=== PATIENT | female | born 1945 | race Asian ===

== ENCOUNTER 2017-10-20 21:24 | Emergency (ER) | payer MEDICARE ==
[~2017-10-20] VITALS: Ht 154.9 cm; Wt 56.7 kg
--- NOTE | 2017-10-20 21:29 | Emergency Room Report ---
History of Present Illness General Chief Complaint: Vomiting Source: Patient Present Illness HPI This is a 71-year-old female with no past medical history. She presents with chief complaint of abdominal pain with nausea vomiting and diarrhea for last 4 days. No fever or chills. Keep anything down. Denies any blood or bile with vomiting. Diarrhea is watery. Initially she said she was constipated she took some laxative. Now is is watery diarrhea. Crampy pain. No chest pain. Allergies: Coded Allergies: No Known Allergies (Unverified , 10/20/17) Patient History Past Medical History: see triage record, old chart reviewed Past Surgical History: none Pertinent Family History: none Social History: Denies: smoking Now: No Immunizations: other Reviewed Nursing Documentation: PMH: Agreed, PSxH: Agreed Review of Systems Eye: Denies: eye pain, blurred vision ENT: Denies: ear pain, nose congestion, throat swelling Respiratory: Denies: cough, shortness of breath Cardiovascular: Denies: chest pain, palpitations Gastrointestinal: Reports: abdominal pain, diarrhea, nausea, vomiting Musculoskeletal: Denies: back pain, joint pain Skin: Denies: rash Neurological: Denies: headache, numbness Endocrine: Denies: increased thirst, increased urine Hematologic/Lymphatic: Denies: easy bruising All Other Systems: negative except mentioned in HPI Physical Exam Vital Signs Date Time Temp Pulse Resp B/P (MAP) Pulse Ox O2 Delivery O2 Flow Rate FiO2 10/20/17 21:20 96.8 103 18 84/41 98 Room Air vitals with hypotension Sp02 EP Interpretation: reviewed, normal General Appearance: well appearing, no apparent distress, alert Head: normocephalic, atraumatic Eyes: bilateral eye PERRL, bilateral eye EOMI ENT: hearing grossly normal, normal pharynx Neck: full range of motion, supple, no meningismus Respiratory: chest non-tender, lungs clear, normal breath sounds Cardiovascular #1: regular rate, rhythm, no murmur Gastrointestinal: non tender, no mass, no organomegaly, no bruit, non-distended , decreased bowel sounds Musculoskeletal: back normal, gait/station normal, normal range of motion Psychiatric: mood/affect normal Skin: warm/dry Procedures Critical Care Time Critical Care Time Critical care is mandated in this patient who presented with acute renal failure and rapid A. fib. Patient require my urgent intervention to attenuate the risks of metabolic collapse which may lead to cardiovascular collapse and . Critical care time is 35 minutes excluding any reportable procedure. Critical care time included evaluation, multiple reevaluation, looking at old charts, interpreting laboratory and diagnostic data, discussing case with patient and family and consultants, and charting. Medical Decision Making Diagnostic Impression: Primary Impression: ARF (acute renal failure) Qualified Codes: N17.9 - Acute kidney failure, unspecified Additional Impressions: Rapid atrial fibrillation Dehydration Enteritis Sepsis Qualified Codes: A41.9 - Sepsis, unspecified organism ACS (acute coronary syndrome) ER Course Patient presents with severe dehydration and acute renal failure. Is probably secondary to vomiting and diarrhea. She does have enteritis on CT scan. Antibiotics given. She is urinating now. Blood pressures been stable after IV fluid. Heart rate became very tachycardic at 140s an EKG showed rapid A. fib. Rated control with small boluses of Cardizem. She is in sinus right now. Patient is stable for transfer to [place]. I discussed the case with Dr. Carmona. Last Vital Signs Date Time Temp Pulse Resp B/P (MAP) Pulse Ox O2 Delivery O2 Flow Rate FiO2 10/20/17 21:20 96.8 103 18 84/41 98 Room Air SACHI DOYLE M.D. Oct 20, 2017 21:29
[2017-10-20] MEDS ORDERED: LR 1000ml 1,000 ML IV SCH (21:30)
[2017-10-20] MEDS ORDERED: NKM (21:47)
[2017-10-20 23:49] LABS: MEAN CORPUSCULAR VOLUME 91 FL (80-99); MEAN PLATELET VOLUME 7.9 FL (6.5-10.1); PLATELET COUNT 165 K/UL (150-450); RED CELL DISTRIBUTION WIDTH 12.5 % (11.6-14.8); WHITE BLOOD COUNT 19.1 K/UL (4.8-10.8)
[2017-10-21 00:05] LABS: PROTHROMBIN TIME 10.8 SEC (9.30-11.50)
[2017-10-21 00:06] LABS: ANION GAP 16 mmol/L (5-15); CARBON DIOXIDE 18 MMOL/L (21-32); CHLORIDE 97 MMOL/L (98-107); CREATININE 4.6 MG/DL (0.55-1.30); POTASSIUM 5.3 MMOL/L (3.5-5.1); SODIUM 130 MMOL/L (136-145)
[2017-10-21 00:11] LABS: ALANINE AMINOTRANSFERASE 22 U/L (12-78); ALBUMIN/GLOBULIN RATIO 0.7 (1.0-2.7); ASPARTATE AMINO TRANSFERASE 32 U/L (15-37); LIPASE 250 U/L (73-393); TOTAL PROTEIN 5.5 G/DL (6.4-8.2)
[2017-10-21 00:21] LABS: BAND NEUTROPHILS % (MANUAL) 0 % (0-8); BASOPHILS % (MANUAL) 0 % (0-2); EOSINOPHILS % (MANUAL) 0 % (0-3); LYMPHOCYTES % (MANUAL) 8 % (20-45); NEUTROPHILS % (MANUAL) 90 % (45-75); PLATELET ESTIMATE ADEQUATE; PLATELET MORPHOLOGY NORMAL; TOTAL CELLS COUNTED 100
[2017-10-21 00:27] LABS: KETONES,URINE NEGATIVE (NEGATIVE); LEUKOCYTE ESTERASE ,URINE NEGATIVE (NEGATIVE); NITRITE,URINE NEGATIVE (NEGATIVE); PH,URINE 5 (4.5-8.0); PROTEIN,URINE NEGATIVE (NEGATIVE); UROBILINOGEN,URINE NORMAL MG/DL (0.0-1.0)
[2017-10-21 00:36] LABS: APPEARANCE,URINE SLIGHTLY CLOUDY
[2017-10-21 00:37] LABS: BACTERIA,URINE OCCASIONAL /HPF; RBC,URINE 0-2 /HPF (0 - 2); SQUAMOUS EPITHELIAL CELL,UR OCCASIONAL /LPF (NONE/OCC); WBC,URINE 0-2 /HPF (0 - 2)
[2017-10-21 00:41] VITALS: BP 115/79
[2017-10-21] MEDS ORDERED: dilTIAZem HCl 25mg/5ml Inj IVP ONE ×2 (01:00→02:15)
[2017-10-21] MEDS ORDERED: LR 1000ml 1,000 ML IV SCH ×2 (01:00→02:00)
[2017-10-21] MEDS ORDERED: Ciprofloxacin 500mg tab ORAL ONE (01:00)
[2017-10-21 01:40] LABS: REFLEX LACTIC ACID YES OR NO YES
[2017-10-21] MEDS ORDERED: Aspirin Baby 81mg ORAL ONE (02:00)
--- NOTE | 2017-10-21 02:06 | Emergency Room Report ---
Physical Exam Vital Signs Date Time Temp Pulse Resp B/P (MAP) Pulse Ox O2 Delivery O2 Flow Rate FiO2 10/20/17 21:20 96.8 103 18 84/41 98 Room Air Medical Decision Making Diagnostic Impression: Primary Impression: ARF (acute renal failure) Qualified Codes: N17.9 - Acute kidney failure, unspecified Additional Impressions: Enteritis ACS (acute coronary syndrome) Sepsis Qualified Codes: A41.9 - Sepsis, unspecified organism Rapid atrial fibrillation Dehydration Laboratory Tests Test 10/20/17 23:30 10/21/17 00:00 10/21/17 01:00 White Blood Count 19.1 K/UL (4.8-10.8) H Red Blood Count 5.50 M/UL (4.20-5.40) H Hemoglobin 17.1 G/DL (12.0-16.0) H Hematocrit 50.2 % (37.0-47.0) H Mean Corpuscular Volume 91 FL (80-99) Mean Corpuscular Hemoglobin 31.0 PG (27.0-31.0) Mean Corpuscular Hemoglobin Concent 34.0 G/DL (32.0-36.0) Red Cell Distribution Width 12.5 % (11.6-14.8) Platelet Count 165 K/UL (150-450) Mean Platelet Volume 7.9 FL (6.5-10.1) Neutrophils (%) (Auto) % (45.0-75.0) Lymphocytes (%) (Auto) % (20.0-45.0) Monocytes (%) (Auto) % (1.0-10.0) Eosinophils (%) (Auto) % (0.0-3.0) Basophils (%) (Auto) % (0.0-2.0) Differential Total Cells Counted 100 Neutrophils % (Manual) 90 % (45-75) H Lymphocytes % (Manual) 8 % (20-45) L Monocytes % (Manual) 2 % (1-10) Eosinophils % (Manual) 0 % (0-3) Basophils % (Manual) 0 % (0-2) Band Neutrophils 0 % (0-8) Platelet Estimate Adequate Platelet Morphology Normal Prothrombin Time 10.8 SEC (9.30-11.50) Prothromb Time International Ratio 1.0 (0.9-1.1) Activated Partial Thromboplast Time 31 SEC (23-33) Urine Color Yellow Urine Appearance Slightly cloudy Urine pH 5 (4.5-8.0) Urine Specific [place] 1.025 (1.005-1.035) Urine Protein Negative (NEGATIVE) Urine Glucose (UA) Negative (NEGATIVE) Urine Ketones Negative (NEGATIVE) Urine Occult Blood Negative (NEGATIVE) Urine Nitrite Negative (NEGATIVE) Urine Bilirubin Negative (NEGATIVE) Urine Urobilinogen Normal MG/DL (0.0-1.0) Urine Leukocyte Esterase Negative (NEGATIVE) Urine RBC 0-2 /HPF (0 - 2) Urine WBC 0-2 /HPF (0 - 2) Urine Squamous Epithelial Cells Occasional /LPF Urine Bacteria Occasional /HPF (NONE) Sodium Level 130 MMOL/L (136-145) L Potassium Level 5.3 MMOL/L (3.5-5.1) H Chloride Level 97 MMOL/L (98-107) L Carbon Dioxide Level 18 MMOL/L (21-32) L Anion Gap 16 mmol/L (5-15) H Blood Urea Nitrogen 85 mg/dL (7-18) H Creatinine 4.6 MG/DL (0.55-1.30) H Estimat Glomerular Filtration Rate mL/min (>60) Glucose Level 157 MG/DL (74-106) H Calcium Level 8.0 MG/DL (8.5-10.1) L Total Bilirubin 0.2 MG/DL (0.2-1.0) Aspartate Amino Transf (AST/SGOT) 32 U/L (15-37) Alanine Aminotransferase (ALT/SGPT) 22 U/L (12-78) Alkaline Phosphatase 44 U/L (46-116) L Total Protein 5.5 G/DL (6.4-8.2) L Albumin 2.3 G/DL (3.4-5.0) L Globulin 3.2 g/dL Albumin/Globulin Ratio 0.7 (1.0-2.7) L Lipase 250 U/L (73-393) Troponin I 0.271 ng/mL (0.000-0.056) Lactic Acid Level 5.10 mmol/L (0.66-2.22) H Lab Results Impression labs show leukocytosis and acute renal failure EKG Diagnostic Results Rate: tachycardiac Rhythm: other - Atrial fibrillation ST Segments: other - Nonspecific ST changes Other Impression rapid A. fib ASA given to the pt in ED: Yes Rhythm Strip Diag. Results Rhythm Strip Time: 02:06 EP Interpretation: yes Rate: 90 Rhythm: NSR, no PVC's, no ectopy Chest X-Ray Diagnostic Results Chest X-Ray Diagnostic Results : Chest X-Ray Ordered: Yes # of Views/Limited/Complete: 1 View Indication: Chest Pain EP Interpretation: Yes Interpretation: no consolidation, no effusion, no pneumothorax, no acute cardiopulmonary disease Impression: No acute disease Electronically Signed by: Enoc Garcia MD CT/MRI/US Diagnostic Results CT/MRI/US Diagnostic Results : Imaging Test Ordered: CT abdomen and pelvis Impression read by radiologist. Enteritis. Last Vital Signs Date Time Temp Pulse Resp B/P (MAP) Pulse Ox O2 Delivery O2 Flow Rate FiO2 10/21/17 02:04 138 115/53 10/21/17 00:41 96.8 18 98 Room Air Status: improved Disposition: XFER SHT-TRM HOSP Condition: Stable Referrals: [facility] (PCP) ENOC GARCIA M.D. Oct 21, 2017 02:06
[2017-10-21 02:35] VITALS: BP 98/40
[2017-10-21 06:18] VITALS: BP_SYST 96; BP_SYST 98; BP_DIAS 28; BP_DIAS 40
--- NOTE | 2017-10-21 12:08 | Diagnostic Imaging Report ---
Indication: Altered mental status Technique: XRAY Chest 1v Comparison: None Findings: Heart size and mediastinal contours are within normal limits given technique. There is linear opacity at the left base which most likely represents atelectasis and/or scarring. Otherwise, there Is no focal consolidation, pneumothorax or pleural effusion. Osseous structures demonstrate no acute abnormality. Questionable prominence of small bowel loops partially visualized. Impression: Linear atelectasis/scarring in the left base.
--- NOTE | 2017-10-21 13:33 | Diagnostic Imaging Report ---
Indication: Abdominal pain, nausea, vomiting Technique: CT of the abdomen and pelvis utilizing automated exposure control without oral or intravenous contrast. CT dose: Total DLP 629.36 mGycm; CTDI vol 13.45 mGy Comparison: None Findings: Please note that evaluation of the abdominal pelvic viscera is limited without the use of intravenous and oral contrast. Within these limitations, the following observations are made: Images through the lower chest demonstrate mild dependent atelectasis or scarring at the periphery of the left lower lobe. Heart size within normal limits. There is a small pericardial effusion versus pericardial thickening. Noncontrast evaluation of the liver, gallbladder, spleen grossly unremarkable. There is fatty atrophy of the pancreas, likely age related. There is bilateral adrenal thickening with more nodular thickening on the left. Kidneys are symmetric in size. There is no urinary tract stone or hydronephrosis bilaterally. There is mild thickening of the bladder wall which is likely related to underdistention however cystitis is not excluded. The uterus appears mildly atrophic. There is no evidence of bowel obstruction. No free intraperitoneal air is seen. There is gas within some nondistended small bowel loops. Liquid stool is noted within the colon. There is no appreciable focal bowel wall thickening however evaluation is limited without oral contrast. The appendix is enlarged proximally, measuring up to 8.3 mm in diameter, with distal tapering. There is no periappendiceal fat stranding. There is a small fat-containing umbilical hernia. Abdominal aorta is normal in caliber with scattered atherosclerotic calcifications. No pathologically enlarged abdominal pelvic lymphadenopathy is seen. No acute osseous abnormality appreciated. Impression: Limited evaluation without oral or intravenous contrast. Within these limitations: * Fluid and gas within nondistended small bowel loops. Liquid stool noted within the colon. Findings may be suggestive of enterocolitis/diarrheal illness correlate clinically. No evidence of associated bowel obstruction. * Enlarged appendix with distal tapering. No focal periappendiceal inflammatory stranding. Findings are equivocal and may be within normal limits however acute uncomplicated appendicitis is not entirely excluded. Correlate with any focal tenderness in the right lower quadrant. If clinically indicated, repeat evaluation with oral and IV contrast should be performed to assess for appendiceal filling. * Bladder wall thickening versus underdistention. Correlate with urinalysis to exclude cystitis. * Small pericardial effusion versus pericardial thickening. * Adrenal hyperplasia with nodular thickening on the left. Additional findings as above. This corresponds with the [facility]rad preliminary report. The CT scanner at [facility] is accredited by the [employer] and the scans are performed using protocols designed to limit radiation exposure to as low as reasonably achievable to attain images of sufficient resolution adequate for diagnostic evaluation.
--- NOTE | 2017-10-22 14:28 | Cardiology Report ---
APPROVED REPORT EKG Measurement Heart [id number] Atrial flutter with variable AV block Septal infarct, age undetermined Abnormal ECG
== END 2017-10-21 06:43 | disposition short-term general hospital (02) ==
LOC: EDBD 21:24 → EMR 23:21
DX: A41.9 Sepsis, unspecified organism (principal); N17.9 Acute kidney failure, unspecified; I24.9 Acute ischemic heart disease, unspecified; I48.91 Unspecified atrial fibrillation; E86.0 Dehydration; K52.9 Noninfective gastroenteritis and colitis, unspecified
CPT/HCPCS: 36415; 71010; 74176; 80053; 81003; 83605; 83690; 84484; 85007; 85025; 85610; 85730; 93005; 96374; 96375; 99285; J2405; J7120